=== PATIENT | female | born 1970 | race Caucasian/White ===

== ENCOUNTER 2017-03-20 11:00 | Inpatient (IN) | payer MEDICARE ==
[~2017-03-20] VITALS: Ht 167.6 cm; Wt 116.4 kg
--- NOTE | ~2017-03-20 | DS ---
PATIENT'S NAME: MARGARITA SILVESTRE [facility] AGE: 46 Y [address] ROOM: [place] [address] LOCATION: [facility] ADMIT DATE: 03/27/2017 Discharge Summary DISCHARGE DATE: 03/29/2017 FAMILY PHYSICIAN: Cruz Braga MD ATTENDING PHYSICIAN: Ubaldo Urrutia ADMITTING DIAGNOSES: 1. Lumbar degenerative disk disease. 2. Lumbar spondylolisthesis. 3. Lumbar chronic compression fracture. 4. Lumbar stenosis. 5. Lumbar radiculopathy. 6. Low back pain. 7. Hypertension. 8. Obesity. 9. Sleep apnea. 10. Diabetes. DISCHARGE DIAGNOSES: 1. Lumbar degenerative disk disease. 2. Lumbar spondylolisthesis. 3. Lumbar chronic compression fracture. 4. Lumbar stenosis. 5. Lumbar radiculopathy. 6. Low back pain. 7. Hypertension. 8. Obesity. 9. Sleep apnea. 10. Diabetes. PROCEDURES PERFORMED DURING THIS HOSPITALIZATION: Lumbar decompression and fusion. CONSULTATIONS: Include hospitalist and Physical Therapy. ADMITTING HISTORY AND PHYSICAL: Briefly this is a 46-year-old female who I have followed for symptomatic lumbar spine disease. She had failed conservative treatment, was offered surgery in the form of a lumbar decompression and fusion. The details, risks, benefits, and options were explained, she freely consented to surgery. HOSPITAL COURSE: The patient was admitted through same-day surgery. She underwent the aforementioned surgical procedure. She recovered from the surgery fine, was transferred from recovery room to the 3rd floor. The patient had stable vital signs, was afebrile throughout her hospitalization. PATIENT'S NAME: MARGARITA SILVESTRE [facility] AGE: 46 Y [address] ROOM: [address] [address] LOCATION: [facility] ADMIT DATE: 03/27/2017 Discharge Summary DISCHARGE DATE: 03/29/2017 FAMILY PHYSICIAN: Cruz Braga MD ATTENDING PHYSICIAN: Ubaldo Urrutia Her hemoglobin was stable and her vital signs were stable. She was gradually mobilized with physical therapy. Her catheter was removed. She was able to void spontaneously. Pain was controlled initially with intravenous medications, converted over to oral medicines. She was discharged home in stable condition on her 2nd postoperative day with the following instructions: Activity is light. She is to wear a brace when she is out of bed. She will restart her home medications with the addition of Percocet for pain relief. She will follow up with me in the clinic in 10 days' time. She is to leave her dressing clean, dry, and intact. She will call the office if she has increasing pain, fevers, chills, weakness, bowel or bladder dysfunction or other concerns or issues arise. All of her questions were answered prior to discharge. MD CRISTINE MASTERS/shanon /[id number] d: 03/29/17 1343 t: 04/15/17 0805, DISCHARGE SUMMARY
--- NOTE | ~2017-03-20 | OR ---
[facility] 46 Y [address] ROOM: [place] [address] LOCATION: [facility] ADMIT DATE: 03/27/2017 OR/Procedure Report DISCHARGE DATE: FAMILY PHYSICIAN: Cruz Braga MD ATTENDING PHYSICIAN: Ubaldo Urrutia SURGEON: Ubaldo Urrutia MD SHRUB PLANTER: DATE OF PROCEDURE: 03/27/2017 PREOPERATIVE DIAGNOSES: 1. Lumbar degenerative disk disease. 2. Lumbar spinal stenosis. 3. Lumbar spondylolisthesis. 4. Lumbar compression fracture, L5. 5. Lumbar radiculopathy. 6. Low back pain. POSTOPERATIVE DIAGNOSES: 1. Lumbar degenerative disk disease. 2. Lumbar spinal stenosis. 3. Lumbar spondylolisthesis. 4. Lumbar compression fracture, L5. 5. Lumbar radiculopathy. 6. Low back pain. PROCEDURE PERFORMED: 1. Lumbar laminectomy of L4 with decompression L4-5 interspace. 2. Lumbar laminectomy of L5 with decompression L5-S1 interspace. 3. Lumbar fusion combined technique, including posterolateral fusion plus transforaminal lumbar interbody fusion, L5-S1. 4. Lumbar fusion posterolateral L4-5. 5. Application of spinal prosthetic cage to L5-S1 interspace. 6. Application of pedicle screw instrumentation segmental L4-S1 bilateral. 7. [place] of bone marrow aspirate, transpedicular technique, L4 vertebral body bilateral. RACE BOARD ATTENDANT: LENA Tran. ANESTHESIA: General. ESTIMATED BLOOD LOSS: 500 mL. COMPLICATIONS: None. SPECIMENS: None. PAT[facility]GE: 46 Y [address] ROOM: [place] [address] LOCATION: [facility] ADMIT DATE: 03/27/2017 OR/Procedure Report DISCHARGE DATE: FAMILY PHYSICIAN: Cruz Braga MD ATTENDING PHYSICIAN: Ubaldo Urrutia FINDINGS: Severe foraminal stenosis L4-5. INSTRUMENTATION USED: Globus [place] pedicle screws and allograft spinal cage with DBM. OPERATIVE INDICATIONS: The patient is a 46-year-old female who I have followed for symptomatic lumbar spondylolisthesis L4-5. Chronic compression deformity of L5 with severe foraminal stenosis across L4-5. The patient failed conservative treatment. She was offered surgery in the form of decompression and fusion. It was necessary to extend her fusion to the sacrum because of inadequate fixation expected at L5 where she had chronic compression deformity. After details, risks, benefits, and options were explained, she freely consented to surgery. OPERATIVE NARRATIVE: After the patient was correctly identified, operative site initialed, she was taken back to the operating room, placed in supine position. After general anesthesia was induced, she was placed in the prone position on the Glenn table with all bony prominences well-padded and protected. The back was prepped and draped in usual sterile fashion. Time- out was taken to verify patient and procedure. 10 mL of 0.25% Marcaine with epinephrine was injected in line with the incision. A 10-blade was used to make a midline incision over the operative levels. Dissection taken down through skin and subcutaneous tissue with electrocautery. The fascia was opened midline and subperiosteal dissection was performed to expose the posterior elements. Kerrison was placed on lamina L5 and verified at L5-S1. The transverse processes and sacral ala were exposed in the lateral gutter. The left-sided lamina at L5 was resected with [place] rongeur and Kerrisons. The foramen was decompressed. Distraction was applied using a lamina dredge deckhand between the spinous process of L5 and S1. The disc space was exposed in the transforaminal region. After the dura was mobilized and the nerve root protected. The disc was incised and then debrided using pituitaries, curettes, and disc space clint. After the diskectomy was completed and this space was prepared trials were placed and a size 12 allograft cage was selected. Bone graft was packed into the disc space and the demineralized bone matrix packed into the cage. The cage was impacted into the disc space, recessed below the posterior vertebral margin. The distractors removed in the laminectomy across L5 was completed by resecting the spinous process and lamina. The spinous process and the lamina were then resected at L4 to provide decompression across L4-5. Lateral recesses were decompressed for the foramen. The foramens were severely stenotic bilateral. After decompression was completed bilaterally at both levels. The area was irrigated and dried. The reference frame was attached to the L3 spinous process and arm was brought in for the [employer] navigation scan. This pedicles were localized at L4, L5, and S1 bilaterally. Prior to screw placement, L4 bone marrow aspirate needle PATIENT'S NAME: MARGARITA SILVESTRE [facility] AGE: 46 Y [address] ROOM: [address] [address] LOCATION: [facility] ADMIT DATE: 03/27/2017 OR/Procedure Report DISCHARGE DATE: FAMILY PHYSICIAN: Cruz Braga MD ATTENDING PHYSICIAN: Ubaldo Urrutia was introduced through particular hole into the vertebral body and total of 10 mL of bone marrow aspirate was obtained and mixed with a bone graft as well as the bone graft sample tailor tricalcium phosphate and demineralized bone matrix. Pedicle screws were placed at L4 and S1 which shorter screws at L5 with compression deformity was present. All screws had good purchase. Confirmation scan was performed to demonstrate a good placement of the pedicle screws. Rods were reduced to the screws. Set caps placed and tightened to the appropriate torque. The wound was irrigated and dried. High-speed bur used to decorticate, the transverse processes and sacral ala bilaterally. The bone graft material was packed into both lateral gutters for the posterior lateral fusion. A 1 g of vancomycin powder was divided between the superficial and deep tissues. The fascia was repaired in layers with #1 Vicryl in the dorsolumbar fascia then 0 Vicryl with subcutaneous tissue. The wound was repaired with jasper in the skin and sterile dressing was applied. The patient was awakened from anesthesia and taken to recovery room in stable condition. computer lab assistant was necessary in this procedure for evacuation of blood during decompression, assistance with placement of the pedicle screw instrumentation for stabilization. MD AIDA MASTERSM/modl /[id number] d: 03/27/17 1717 t: 04/15/17 0802, OPERATIVE SUMMARY
[~2017-03-20 11:00] MED LIST: AMBIEN10 MG PO; AUGMENTIN875 MG PO; CITRACAL + BON1 EACH PO; CPAP INH; FEOSOL325 MG PO; FLEXERIL10 MG PO; MAGNESIUM OXID400 MG PO; MEGA BIOTIN10000 MCG PO; NATURE-THROID97.5 MG PO; NEURONTIN300 MG PO; OXYGEN M-15 INH; PERCOCET 10-321 EACH PO; PHENERGAN25 M1 PO; SUDAFED30 MG PO; THERA-VITE W/ B1 TAB PO; TURMERIC500 MG PO; VALIUM10 MG PO; VITAMIN B-1000 MCG/1 PO; ZOFRAN ODT4 MG SL
[2017-03-27] MEDS ORDERED: PATADAY2.5 ML IO (06:24)
[2017-03-28 06:51] LABS: BASOPHIL % 0.3 %; EOSINOPHIL # 0.3 K/uL (0.0-0.5); HEMATOCRIT 32.2 % (33.0-46.0); HEMOGLOBIN 10.6 g/dL (10.0-15.0); IMMATURE GRANULOCYTE % 0.3 %; LYMPHOCYTE # 0.8 K/uL (0.8-4.0); LYMPHOCYTE % 6.9 %; MCH 30.2 pg (27.0-34.0); MCHC 32.9 gm/dL (32.0-36.5); MCV 91.7 fl (83.0-98.0); MONOCYTE # 1.1 K/uL (0.0-1.0); MONOCYTE % 9.6 %; MPV 9.3 fl (9.4-12.4); NEUTROPHIL # (ANC) 9.1 K/uL (1.8-7.8); NEUTROPHIL % 79.9 %; NRBC % 0 /100WBC (0-0.00); PLATELET COUNT 267 K/uL (150-450); RBC 3.51 M/uL (3.50-5.50); RDW-CV 12.6 % (11.9-14.6); WBC 11.4 K/uL (4.0-11.0)
[2017-03-29] MEDS ORDERED: PERCOCET 5-3251 EACH PO (10:30)
== END 2017-03-29 13:00 | disposition disaster alternative care site (69) | DRG 460 ==
LOC: G3N 03-27 05:59
PROVIDERS: ADMIT Orthopaedic Surgery Orthopaedic Surgery of the Spine
PROC: 8E0WXBZ Computer Assisted Procedure of Trunk Region (ICD-10-PCS; principal; 2017-03-27)
PROC: 0SG00Z1 (ICD-10-PCS; principal; 2017-03-27)
PROC: 0SG30AJ Fusion of Lumbosacral Joint with Interbody Fusion Device, Posterior Approach, Anterior Column, Open Approach (ICD-10-PCS; principal; 2017-03-27)
PROC: 07DS3ZZ Extraction of Vertebral Bone Marrow, Percutaneous Approach (ICD-10-PCS; principal; 2017-03-27)
DX: M51.16 Intervertebral disc disorders with radiculopathy, lumbar region (principal); M48.56XA Collapsed vertebra, not elsewhere classified, lumbar region, initial encounter for fracture; I10 Essential (primary) hypertension; M48.06 Spinal stenosis, lumbar region; M43.16 Spondylolisthesis, lumbar region; E66.9 Obesity, unspecified; G47.30 Sleep apnea, unspecified; E11.9 Type 2 diabetes mellitus without complications
CPT/HCPCS: C1713; J0131; J0171; J0690; J1170; J1200; J1885; J2001; J2405; J3010; J3370; J3480; J7030